=== PATIENT | male | born 1960 | race Caucasian/White ===

== ENCOUNTER 2023-11-14 09:25 | Emergency (ER) | payer MEDICARE, OTHER ==
[2023-11-14 10:13] LABS: #Basophils 0.04 10x3/uL (0.0-0.2); %Basophils 0.9 % (0.0-1.0); %Eosinophils 3.5 % (0.0-10.0); %Lymphocytes 16.5 % (21.0-51.0); %Monocytes 8.2 % (0.0-10.0); %Neutrophils 70.7 % (42.0-75.0); Hematocrit 34.1 % (42.0-52.0); Hemoglobin 10.7 g/dL (14.0-18.0); Mean Corpuscular HGB CONC 31.4 g/dL (32.0-36.0); Mean Corpuscular Hemoglobin 31.7 pg (27.0-31.0); Mean Corpuscular Volume 100.9 fL (78.0-98.0); Mean Platelet Volume 11.5 fL (7.4-10.4); Platelet Count 153 10x3/uL (130-400); RBC Distribution Width 15.5 % (11.5-14.5); Red Blood Cell (RBC) Count 3.38 mill/uL (4.70-6.10)
[2023-11-14 10:29] LABS: INR-International Normal Ratio 1.2; Prothrombin Time 15.3 sec (12.0-14.7)
[2023-11-14 10:30] LABS: PTT 35.8 sec (22.9-36.1)
[2023-11-14 10:31] LABS: ALT (SGPT) 7 U/L (8-55); AST (SGOT) 18 U/L (5-34); Albumin 3.9 g/dL (3.4-4.8); Alkaline Phosphatase 21 U/L (40-110); Anion Gap 16 mmol/L (10-20); BUN (Urea Nitrogen) 33 mg/dL (8.4-25.7); Bilirubin, Total 0.4 mg/dL (0.2-1.2); Calc. Creatinine Clearance 0 mL/min (70-130); Calcium 9.2 mg/dL (7.8-10.44); Carbon Dioxide 29 mmol/L (23-31); Chloride 99 mmol/L (98-107); Estimated GFR 10; Globulin 3.6 g/dL (2.4-3.5); Glucose 124 mg/dL (80-115); Potassium 3.9 mmol/L (3.5-5.1); Protein, Total 7.5 g/dL (5.8-8.1); Sodium 140 mmol/L (136-145)
[2023-11-14] MEDS ORDERED: Lidocaine 1% w/Epinephrine 1:100K 20 ML VIAL ONE (11:18)
== END 2023-11-14 12:05 | disposition home or self-care (01) ==
LOC: ERS 09:25
DX: T82.590A Other mechanical complication of surgically created arteriovenous fistula, initial encounter (principal); I10 Essential (primary) hypertension; E11.9 Type 2 diabetes mellitus without complications; F17.210 Nicotine dependence, cigarettes, uncomplicated
CPT/HCPCS: 80053; 85025; 85610; 85730; 86850; 86900; 86901; 99284

== ENCOUNTER 2024-02-25 13:37 | Inpatient (IN) | payer OTHER ==
[2024-02-25 14:37] LABS: #Basophils 0.04 10x3/uL (0.0-0.2); %Basophils 0.8 % (0.0-1.0); %Eosinophils 1.8 % (0.0-10.0); %Lymphocytes 19.8 % (21.0-51.0); %Neutrophils 65.2 % (42.0-75.0); Hematocrit 34.9 % (42.0-52.0); Hemoglobin 10.8 g/dL (14.0-18.0); Mean Corpuscular HGB CONC 30.9 g/dL (32.0-36.0); Mean Corpuscular Hemoglobin 30.2 pg (27.0-31.0); Mean Corpuscular Volume 97.5 fL (78.0-98.0); Platelet Count 187 10x3/uL (130-400); RBC Distribution Width 16.6 % (11.5-14.5); Red Blood Cell (RBC) Count 3.58 mill/uL (4.70-6.10)
[2024-02-25 14:51] LABS: ALT (SGPT) 6 U/L (8-55); AST (SGOT) 16 U/L (5-34); Albumin 3.4 g/dL (3.4-4.8); Alkaline Phosphatase 23 U/L (40-110); Anion Gap 15 mmol/L (10-20); BUN (Urea Nitrogen) 17 mg/dL (8.4-25.7); Bilirubin, Total 0.7 mg/dL (0.2-1.2); Calc. Creatinine Clearance 0 mL/min (70-130); Calcium 8.1 mg/dL (7.8-10.44); Carbon Dioxide 31 mmol/L (23-31); Chloride 100 mmol/L (98-107); Estimated GFR 15; Globulin 3.8 g/dL (2.4-3.5); Glucose 82 mg/dL (80-115); Potassium 3.7 mmol/L (3.5-5.1); Protein, Total 7.2 g/dL (5.8-8.1); Sodium 142 mmol/L (136-145)
[2024-02-25 14:52] LABS: Acetaminophen Less than 10 mcg/mL (Less than 10); Alcohol Less than 10.0 mg/dL (Less than 10); Salicylate Less than 8.0 mg/dL (Less than 8.0)
[2024-02-25 14:57] LABS: Troponin I 0.059 ng/mL (< 0.028)
[2024-02-25] MEDS ORDERED: Acetaminophen 650 MG Suppository PR PRN (17:16)
[2024-02-25] MEDS ORDERED: Ondansetron PF 4 MG/2 ML Vial IVP PRN (17:16)
[2024-02-25] MEDS ORDERED: Acetaminophen 325 MG TAB PO PRN (17:16)
[2024-02-25] MEDS ORDERED: Ondansetron ODT 4 MG TAB PO PRN (17:16)
[2024-02-25 17:48] VITALS: BMI 26.5
[2024-02-25 18:13] LABS: Free T4 (Free Thyroxine) 0.84 ng/dL (0.70-1.48)
[2024-02-25 18:51] LABS: Actual Bicarbonate (HCO3a) 31.4 mEq/L (22-28); Base Excess (BEa) 5.5 mEq/L (-2.0 to +3.0); CO2 Tension 52.2 mmHg (35.0-45.0); Calcium, Ionized (arterial) 1.06 mmol/L (1.12-1.30); Carboxyhemoglobin (COHb) 3.3 gm% (0.0-3.0); Hematocrit-ABG 32 % (42.0-52.0); Hemoglobin (Hb) 10.9 g/dL (14.0-18.0); Potassium - ABG Lab 3.78 mmol/L (3.70-5.30); pH, Arterial 7.397 (7.35-7.45)
[2024-02-25] MEDS: EPOETIN ALFA-EPBX (ESRD) 10,000 UNITS/ML VIAL SC SCH (21:36)
[2024-02-25] MEDS: Levothyroxine Sodium 200 MCG VIAL IVP SCH (21:37)
[2024-02-25] MEDS: Heparin 5,000 UNITS/ML VIAL SC SCH (21:37)
[2024-02-25 23:14] LABS: Actual Bicarbonate (HCO3a) 30.4 mEq/L (22-28); Base Excess (BEa) 4.9 mEq/L (-2.0 to +3.0); CO2 Tension 49.7 mmHg (35.0-45.0); Calcium, Ionized (arterial) 1.05 mmol/L (1.12-1.30); Carboxyhemoglobin (COHb) 2.5 gm% (0.0-3.0); Hematocrit-ABG 31 % (42.0-52.0); Hemoglobin (Hb) 10.7 g/dL (14.0-18.0); Potassium - ABG Lab 3.91 mmol/L (3.70-5.30); pH, Arterial 7.405 (7.35-7.45)
[2024-02-25 23:19] LABS: ALV-art Gradient 112.935 mmHg (0-20); Puncture Site LR
[2024-02-26] MEDS: hydrALAZINE 20 MG/ML VIAL SLOW IVP PRN ×2 (00:24→11:40)
[2024-02-26] MEDS: Hydrocortisone Sod Succ/PF 100 mg/2 ml Vial IVP SCH (00:25)
[2024-02-26 01:06] LABS: Actual Bicarbonate (HCO3a) 30.5 mEq/L (22-28); Base Excess (BEa) 4.9 mEq/L (-2.0 to +3.0); CO2 Tension 50.8 mmHg (35.0-45.0); Calcium, Ionized (arterial) 1.04 mmol/L (1.12-1.30); Carboxyhemoglobin (COHb) 1.5 gm% (0.0-3.0); Hematocrit-ABG 31 % (42.0-52.0); Hemoglobin (Hb) 10.4 g/dL (14.0-18.0); O2 Tension (PaO2), arterial 138.4 mmHg (> 80.0); Potassium - ABG Lab 3.98 mmol/L (3.70-5.30); pH, Arterial 7.397 (7.35-7.45)
[2024-02-26 01:11] LABS: Puncture Site Right Radial artery
[2024-02-26] MEDS: hydrALAZINE 20 MG/ML VIAL SLOW IVP SCH (01:20)
[2024-02-26] MEDS: Nitroglycerin 2% Ointment 1 INCH/1 GM Packet TOP SCH (01:30)
[2024-02-26 03:24] LABS: #Basophils 0.04 10x3/uL (0.0-0.2); #Eosinophils Less than 0.03 10x3/uL (0.0-0.7); %Basophils 0.8 % (0.0-1.0); %Eosinophils 0.4 % (0.0-10.0); %Lymphocytes 8.2 % (21.0-51.0); %Monocytes 3.4 % (0.0-10.0); %Neutrophils 86.8 % (42.0-75.0); Hematocrit 34.1 % (42.0-52.0); Hemoglobin 10.8 g/dL (14.0-18.0); Mean Corpuscular HGB CONC 31.7 g/dL (32.0-36.0); Mean Corpuscular Volume 94.7 fL (78.0-98.0); Mean Platelet Volume 10.3 fL (7.4-10.4); Platelet Count 146 10x3/uL (130-400); RBC Distribution Width 16.7 % (11.5-14.5)
[2024-02-26 04:11] LABS: Anion Gap 16 mmol/L (10-20); BUN (Urea Nitrogen) 21 mg/dL (8.4-25.7); Calc. Creatinine Clearance 24 mL/min (70-130); Calcium 7.6 mg/dL (7.8-10.44); Carbon Dioxide 27 mmol/L (23-31); Chloride 101 mmol/L (98-107); Estimated GFR 14; Glucose 76 mg/dL (80-115); Potassium 4.3 mmol/L (3.5-5.1); Sodium 140 mmol/L (136-145)
[2024-02-26 04:52] LABS: Phosphorus 5.3 mg/dL (2.3-4.7)
[2024-02-26] MEDS ORDERED: Levothyroxine Sodium 200 MCG VIAL IVP SCH (06:00)
[2024-02-26] MEDS: Losartan 25 MG TAB PO SCH ×3 (09:12→21:20)
[2024-02-26] MEDS: Sevelamer Carbonate 800 MG TAB PO SCH (09:13)
[2024-02-26] MEDS: Pantoprazole 40 MG VIAL IVP SCH (09:17)
[2024-02-26] MEDS ORDERED: Calcium Acetate 667 MG CAP PO SCH (12:00)
[2024-02-26] MEDS: Levothyroxine Sodium 75 MCG TAB PO SCH (12:48)
[2024-02-26] MEDS: NIFEdipine XL 60 MG ER.TAB PO SCH ×2 (12:49→21:20)
[2024-02-26] MEDS: Calcium Acetate 667 MG CAP PO SCH (12:49)
[2024-02-26] MEDS: Levothyroxine Sodium 100 MCG TAB PO SCH (12:49)
[2024-02-26 14:14] VITALS: BMI 25.6
[2024-02-26] MEDS: hydrALAZINE 25 MG TAB PO SCH (15:16)
[2024-02-26] MEDS ORDERED: Losartan 25 MG TAB PO SCH (21:00)
[2024-02-26] MEDS: Minoxidil 10 MG TAB PO SCH (21:15)
[2024-02-26] MEDS: Melatonin 3 MG TAB PO SCH (21:19)
[2024-02-27] MEDS: Levothyroxine Sodium 100 MCG TAB PO SCH (06:16)
[2024-02-27] MEDS: Levothyroxine Sodium 75 MCG TAB PO SCH (06:16)
[2024-02-27 07:58] LABS: O2 Tension (PaO2), arterial 44.4 mmHg (> 80.0)
[2024-02-27 07:59] LABS: O2 Tension (PaO2), arterial 53.1 mmHg (> 80.0)
[2024-02-27] MEDS ORDERED: Sertraline 25 MG TAB PO SCH (09:00)
[2024-02-27] MEDS: Hydrocortisone Sod Succ/PF 100 mg/2 ml Vial IVP SCH (09:27)
[2024-02-27] MEDS: Sertraline 100 MG TAB PO SCH (09:28)
[2024-02-27] MEDS: Atorvastatin Calcium 20 MG TAB PO SCH (09:29)
[2024-02-27] MEDS: Famotidine 20 MG TAB PO SCH (09:29)
[2024-02-27] MEDS: Pantoprazole DR 40 MG TAB PO SCH (09:30)
[2024-02-27 09:44] LABS: #Basophils Less than 0.03 10x3/uL (0.0-0.2); #Eosinophils Less than 0.03 10x3/uL (0.0-0.7); %Basophils 0.2 % (0.0-1.0); %Lymphocytes 8.4 % (21.0-51.0); Hematocrit 36.3 % (42.0-52.0); Hemoglobin 11.5 g/dL (14.0-18.0); Mean Corpuscular HGB CONC 31.7 g/dL (32.0-36.0); Mean Corpuscular Hemoglobin 29.4 pg (27.0-31.0); Mean Corpuscular Volume 92.8 fL (78.0-98.0); Mean Platelet Volume 11.3 fL (7.4-10.4); Platelet Count 192 10x3/uL (130-400); RBC Distribution Width 16.8 % (11.5-14.5); Red Blood Cell (RBC) Count 3.91 mill/uL (4.70-6.10)
[2024-02-27 10:01] LABS: Anion Gap 15 mmol/L (10-20); BUN (Urea Nitrogen) 32 mg/dL (8.4-25.7); Calc. Creatinine Clearance 22 mL/min (70-130); Calcium 8.1 mg/dL (7.8-10.44); Carbon Dioxide 27 mmol/L (23-31); Chloride 100 mmol/L (98-107); Estimated GFR 13; Glucose 164 mg/dL (80-115); Potassium 4.4 mmol/L (3.5-5.1); Sodium 138 mmol/L (136-145)
[2024-02-27 12:47] VITALS: BP 198/70
[2024-02-27 16:20] VITALS: TEMP 97.8
== END 2024-02-27 17:30 | disposition home or self-care (01) | DRG 70 ==
LOC: ERS 13:37 → T4-A 17:03 → 2SE 20:24 → OBSVTOIN 22:39 → IMCU/EMU 23:30
PROVIDERS: ADMIT Internal Medicine; ATTEND Internal Medicine
PROC: 4A133R1 Monitoring of Arterial Saturation, Peripheral, Percutaneous Approach (ICD-10-PCS; principal; 2024-02-25)
PROC: 5A0945A Assistance with Respiratory Ventilation, 24-96 Consecutive Hours, High Flow/Velocity Cannula (ICD-10-PCS; 2024-02-25)
DX: G93.41 Metabolic encephalopathy (principal); J96.01 Acute respiratory failure with hypoxia; N18.6 End stage renal disease; I13.2 Hypertensive heart and chronic kidney disease with heart failure and with stage 5 chronic kidney disease, or end stage renal disease; Z99.2 Dependence on renal dialysis; C73 Malignant neoplasm of thyroid gland; E03.9 Hypothyroidism, unspecified; I16.0 Hypertensive urgency; R00.1 Bradycardia, unspecified; I50.9 Heart failure, unspecified; D63.1 Anemia in chronic kidney disease; E78.5 Hyperlipidemia, unspecified; Z79.899 Other long term (current) drug therapy
CPT/HCPCS: 36415; 36600; 70450; 71045; 80048; 80053; 80307; 82306; 82533; 82805; 83880; 83970; 84100; 84439; 84443; 84481; 84484; 85025; 93005; 93306; 96372; 96374; 97139; J0360; J1644; J1720; J2470; Q5105

== ENCOUNTER 2025-01-27 14:00 | Outpatient (CLI) | payer OTHER | END 2025-01-27 14:01 | disposition home or self-care (01) | LOC: ULT 14:00 | PROVIDERS: ATTEND Family Medicine | DX: E03.9 Hypothyroidism, unspecified (principal); N50.9 Disorder of male genital organs, unspecified; R94.6 Abnormal results of thyroid function studies; N50.3 Cyst of epididymis; Z90.89 Acquired absence of other organs | CPT/HCPCS: 76536; 76870; 93976 ==